=== PATIENT | female | born 1980 | race Caucasian/White ===

== ENCOUNTER 2017-07-07 11:36 | Emergency (ER) | payer MEDICAID ==
[2017-07-07] MEDS ORDERED: METHYLPREDNISOLONE PF 125MG/VIAL IVP ONE (12:44)
[2017-07-07] MEDS ORDERED: IPRATROPIUM/ALBUTEROL (0.5MG/3MG) NEB INH ONE (12:44)
--- NOTE | 2017-07-07 12:49 | Emergency Department Record ---
History of Present Illness - General Chief Complaint: Difficulty Breathing Stated Complaint: BRIDGER Source: Patient - History of Present Illness Initial Comments: Patient has been having BRIDGER for a few days, yesterday having to stay seated upright, with a yellow productive cough, no f,c,n,v,d, but a sore abdomen from all of her coughing. She has been an asthmatic, but was also diagnosed with COPD about a year and a half ago. She continues to smoke cigarettes, has a history of pneumonia, and takes control treatment. She denies history of PE, DVT, calf tenderness. LMP was 2 weeks ago. - Related Data Home Medications Medication Instructions Recorded Confirmed Last Taken Budesonide [Pulmicort] 0.25 mg IH Q8H 07/07/17 07/07/17 07/07/17 Previous Rx's Medication Instructions Recorded Azithromycin [Zithromax] 250 mg PO DAILY #4 tab 07/07/17 Prednisone [Prednisone 20Mg] 20 mg PO DAILY #20 tab 07/07/17 Allergies Allergy/AdvReac Type Severity Reaction Status Date / Time No Known Drug Allergies Allergy Verified 07/07/17 12:42 Review of Systems Reviewed: No additional complaints except as noted below Constitutional: Reports: As per HPI. Denies: Chills, Fever, Malaise, Night sweats, Weakness, Weight change Eyes: Reports: As per HPI. Denies: Eye discharge, Eye pain, Photophobia, Vision change ENT: Reports: As per HPI. Denies: Congestion, Dental pain, Ear pain, Epistaxis , Hearing loss, Throat pain Respiratory: Reports: As per HPI. Denies: Cough, Dyspnea, Hemoptysis, Stridor, Wheezes Cardiovascular: Reports: As per HPI. Denies: Arrhythmia, Chest pain, Dyspnea on exertion, Edema, Murmurs, Orthopnea, Palpitations, Paroxysmal nocturnal dyspnea, Rheumatic Fever, Syncope Endocrine: Reports: As per HPI. Denies: Fatigue, Heat or cold intolerance, Polydipsia, Polyuria Gastrointestinal: Reports: As per HPI. Denies: Abdominal pain, Constipation, Diarrhea, Hematemesis, Hematochezia, Melena, Nausea, Vomiting Genitourinary: Reports: As per HPI. Denies: Abnormal menses, Discharge, Dyspareunia, Dysuria, Frequency, Hematuria, Incontinence, Retention, Urgency Musculoskeletal: Reports: As per HPI. Denies: Arthralgia, Back pain, Gout, Joint swelling, Myalgia, Neck pain Skin: Reports: As per HPI. Denies: Bruising, Change in color, Change in hair/ nails, Lesions, Pruritus, Rash Neurological: Reports: As per HPI. Denies: Abnormal gait, Confusion, Headache, Numbness, Paresthesias, Seizure, Tingling, Tremors, Vertigo, Weakness Psychiatric: Reports: As per HPI. Denies: Anxiety, Auditory hallucinations, Depression, Homicidal thoughts, Suicidal thoughts, Visual hallucinations Hematological/Lymphatic: Reports: As per HPI. Denies: Anemia, Blood Clots, Easy bleeding, Easy bruising, Swollen glands Past Medical History - SOCIAL HISTORY Smoking Status: Current every day smoker - RESPIRATORY Hx Respiratory Disorders: Yes Hx Asthma: Yes - CARDIOVASCULAR Hx Cardio Disorders: No - NEURO Hx Neuro Disorders: No - GI Hx GI Disorders: No - Hx Genitourinary Disorders: No - ENDOCRINE Hx Endocrine Disorders: No - MUSCULOSKELETAL Hx Musculoskeletal Disorders: No - PSYCH Hx Psych Problems: No - HEMATOLOGY/ONCOLOGY Hx Hematology/Oncology Disorders: No Physical Exam - General General Appearance: Alert, Oriented x3, Cooperative, Moderate distress ( breathless speech, short sentences, accessory muscle use, RA biox 88 upon arrival prior to oxygen application via n.c[place] - Head Head exam: Normal inspection - Eye Eye exam: Normal appearance, PERRL Pupils: Normal accommodation - ENT ENT exam: Normal exam, Mucous membranes dry, Normal external ear exam, Normal orophraynx, TM's normal bilaterally Ear exam: Normal external inspection. negative: External canal tenderness Nasal Exam: Normal inspection. negative: Discharge, Sinus tenderness Mouth exam: Normal external inspection, Tongue normal Teeth exam: Normal inspection. negative: Dental caries Throat exam: Normal inspection. negative: Tonsillar erythema, Tonsillar exudate - Neck Neck exam: Normal inspection, Full ROM. negative: Tenderness - Respiratory Respiratory exam: Decreased breath sounds, Prolonged expiratory, Wheezes. negative: Respiratory distress - Cardiovascular Cardiovascular Exam: Normal rhythm, Normal heart sounds, Tachycardia - GI/Abdominal GI/Abdominal exam: Soft, Normal bowel sounds. negative: Tenderness - Rectal Rectal exam: Deferred - exam: Deferred - Extremities Extremities exam: Normal inspection, Full ROM, Normal capillary refill. negative: Calf tenderness, Pedal edema, Tenderness - Back Back exam: Reports: Normal inspection, Full ROM. Denies: Muscle spasm, Rash noted, Tenderness - Neurological Neurological exam: Alert, CN II-XII intact, Normal gait, Oriented X3, Reflexes normal - Psychiatric Psychiatric exam: Normal affect, Normal mood - Skin Skin exam: Dry, Intact, Normal color, Warm Course - Reevaluation(s) Reevaluation #1: Patient has maintained her biox > or= 94% RA. She prefers to go home if possible. Results discussed of all labs and testing. Patient understands. 07/07/17 17:42 07/07/17 18:13 Reevaluation #2: Repeat exam shows lungs to be clear on auscultation, biox has remained at 94% RA , and pulse has normalized. She is sp[eaking full sentences and sipping ice water waiting for medications and fluids to complete. She is requesting a work note for herself and her who work's [employer]. 07/07/17 18:18 Medical Decision Making - Management Options MDM Management: No Additional Work-up Planned - Data Complexity MDM Data: Labs Ordered and/or Reviewed, X-Ray Ordered and/or Reviewed (CTA: No PE, aneurysm, dissection seen. Trace atelectasis/scarring RML but no consolidation or effusions. Per rad.), EKG Ordered and/or Reviewed - Lab Data Result diagrams: 07/07/17 12:38 07/07/17 12:38 - EKG Data -: EKG Interpreted by Wi EKG: No Acute Changes Disposition Disposition: Discharge Clinical Impression: COPD (chronic obstructive pulmonary disease) with acute bronchitis Asthmatic bronchitis with acute exacerbation Qualifiers: Asthma severity: moderate Asthma persistence: persistent Qualified Code(s): J45.41 - Moderate persistent asthma with (acute) exacerbation Disposition: Home, Self-Care Condition: (1) Good Instructions: Dyspnea (ED) Additional Instructions: Take zithromax as directed until gone. Prednisone taper as instructed. Off work tomorrow, rest at home. Abstain from smoking completely. Continue present medications. Follow up with PCP this week for recheck. Prescriptions: Azithromycin [Zithromax] 250 mg PO DAILY #4 tab Prednisone [Prednisone 20Mg] 20 mg PO DAILY #20 tab Forms: Patient Portal Access Quality - Quality Measures Quality Measures: N/A - Blood Pressure Screening Does Patient Have Any of the Following: No Blood Pressure Classification: Hypertensive Reading Systolic Measurement: 157 Diastolic Measurement: 136
[2017-07-07 13:05] LABS: BASO % 0.7 % (0-6); EOS % 2.9 % (0-6); GRAN % 68.3 % (47-80); HEMATOCRIT 43.6 % (35.0-47.0); MEAN CELL VOLUME 96.2 fl (81-97); MEAN CORPUSCULAR HEMOGLOBIN 33.1 pg (27-33); MEAN CORPUSCULAR HGB CONC 34.4 g/dl (32-36); MEAN PLATELET VOLUME 9.1 fl (7.4-10.4); MONO % 8.1 % (0-9); PLATELET COUNT 297 K/uL (130-400); RED BLOOD COUNT 4.53 M/uL (3.80-5.40)
[2017-07-07 13:17] LABS: BLOOD UREA NITROGEN 7 mg/dL (6-20); CREATININE 0.6 mg/dL (0.5-0.9); EST GLOMERULAR FILTRATION RATE > 60 mL/min; GLUCOSE,RANDOM 124 mg/dL (74-109)
[2017-07-07 13:26] LABS: NTpro B-NATRIURETIC PEPTIDE 86.23 pg/mL (<125)
[2017-07-07 13:39] LABS: URINE APPEARANCE CLEAR; URINE BILIRUBIN NEGATIVE (NEGATIVE); URINE BLOOD SMALL (NEGATIVE); URINE COLOR YELLOW; URINE GLUCOSE (UA) NEGATIVE (NEGATIVE); URINE KETONE NEGATIVE (NEGATIVE); URINE LEUKOCYTE ESTERASE NEGATIVE (NEGATIVE); URINE NITRITE NEGATIVE (NEGATIVE); URINE UROBILINOGEN 0.2 E.U./dL (0.20 - 1.00)
[2017-07-07 14:00] LABS: URINE AMORPHOUS SEDIMENT 3+; URINE BACTERIA FEW; URINE EPITHELIAL CELLS 0 - 2 (FEW); URINE RBC 0 - 2 (NONE SEEN); URINE WBC 0 - 2 (0-2/hpf)
[2017-07-07] MEDS ORDERED: 0.9 % SODIUM CHLORIDE 1,000 ML BAG IV ONE (15:38)
[2017-07-07] MEDS ORDERED: ALBUTEROL SULFATE (0.083%) 2.5 MG/3 ML NEB INH ONE (15:39)
[2017-07-07] MEDS ORDERED: AZITHROMYCIN 500 MG TABLET PO ONE (17:42)
[2017-07-07] MEDS ORDERED: CEFTRIAXONE SODIUM 1 GM in 0.9 % SODIUM CHLORIDE 100ML 100 ML IVPB ONE (17:42)
--- NOTE | 2017-07-08 09:19 | CT ANGIOGRAM REPORT ---
EXAM: CT ANGIOGRAM OF THE CHEST WITH POST PROCESSING HISTORY: SHORTNESS OF BREATH FOR TWO DAYS. ELEVATED D-DIMER. TECHNIQUE: Routine CT angiogram of the chest was performed utilizing a pulmonary embolus protocol with 89 ml of Omnipaque 350 utilized. Maximum intensity projection reformatted images are generated in the coronal and sagittal planes and reviewed. Comparison: CT angiogram of the chest dated 10/26/15. FINDINGS: Opacification of the pulmonary arteries is satisfactory for interpretation. No luminal filling defect is noted in the outflow tract, main arteries, lobar arteries, nor proximal segmental arteries to suggest acute pulmonary embolic disease though evaluation of the segmental arteries at several levels is mildly limited by patient motion. The heart is not enlarged. The thoracic aorta is without aneurysmal dilatation and without dissection. There is a 9 mm in short axis diameter lymph node in the right paratracheal region at the level of the aortic arch, not significantly changed in the interval. No new mediastinal mass or adenopathy is seen. Lymphoid tissue in each hilum is near the upper limits of normal though this appears slightly less pronounced than on the prior examination and this is therefore likely reactive. There is minimal linear atelectasis versus scarring in the anteromedial aspect of the right upper lobe near the mid lung level. The lungs are otherwise clear with the exception of minimal linear atelectasis versus scarring within the bases. The central airways appear clear. The adrenal glands are not enlarged. There is possible mild hepatic steatosis. No lytic nor blastic bone lesion is seen. IMPRESSION: 1. NO CTA EVIDENCE OF ACUTE PULMONARY EMBOLIC DISEASE THOUGH EVALUATION OF SEGMENTAL ARTERIES AT SEVERAL LEVELS IS MILDLY LIMITED BY PATIENT MOTION. NO EVIDENCE OF THORACIC AORTIC ANEURYSM NOR DISSECTION. 2. BORDERLINE LYMPHOID TISSUE PROMINENCE IN EACH HILUM APPEARS SLIGHTLY LESS PRONOUNCED THAN ON THE 10/26/15 EXAMINATION. 3. MINOR LINEAR SCARRING VERSUS ATELECTASIS WITHIN THE ANTEROMEDIAL ASPECT OF THE RIGHT UPPER LOBE AND WITHIN THE MEDIAL ASPECT OF THE RIGHT MIDDLE LOBE. JOB NUMBER: [id number] MTDD
== END 2017-07-07 19:14 | disposition home or self-care (01) ==
LOC: ER 11:36
DX: J44.1 Chronic obstructive pulmonary disease with (acute) exacerbation (principal); J45.41 Moderate persistent asthma with (acute) exacerbation; R79.89 Other specified abnormal findings of blood chemistry; F17.210 Nicotine dependence, cigarettes, uncomplicated
CPT/HCPCS: 99284 ×2; 96365; 96375; 85025; 80048; 81001; 85379; 83880; 71275; 94640 ×2; 93005; 93010; Q9967; J2930; J7613